=== PATIENT | male | born 1985 | race Caucasian/White ===

== ENCOUNTER 2019-07-11 20:08 | Emergency (ER) | payer SELFPAY ==
[2019-07-11 20:09] VITALS: BP 124/69; PULSE 90; RESP 16; TEMP 36.3; O2SAT 99; BMI 22.1
--- NOTE | 2019-07-11 20:39 | ED.RN ---
PT WITH SHORTENED AND BLACKENED NAIL ON LEFT 2ND TOE. PT DENIES INJURY. HE REPORTS, I HAVE STRUGGLED WITH ATHLETES FOOT FOR A LONG TIME, BUT THIS IS DIFFERENT AND IT HURTS. I JUST WANTED IT TO GET CHECKED. PT AWAITING PHYSICIAN. WILL CONTINUE TO MONITOR.
--- NOTE | 2019-07-11 21:24 | ED.VISSUMM ---
- ER Visit Summary Date of Service: 07/11/19 Chief Complaint: [Pain to the left second toe] History of Present Illness: The patient is a 33 M [resents to the emergency department with complaint of pain to his left second toe that started 2 days ago. Patient denies any injury. He denies any fevers. Patient has no medical history.] Physical Examination: [Left foot-second toe reveals tenderness to palpation just proximal to the nail with some faint erythema noted. There is no abscess noted. Patient has fungal infections of all nails. No bony deformity. There is no ecchymosis or bruising. There is no soft tissue swelling.] Test Results: None indicated [] Emergency Department Course and Treatment: [Patient was started on Keflex and given first dose in the emergency department. I suspect he may be developing an early paronychia.] Treatment Plan: [Will be starting Keflex and will be referred to podiatry for follow-up. 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 It may contain incorrect words, spelling, and punctuation that were not noted in review of the chart prior to signing ED Disposition - Plan for ED Patient: Referrals: Care Physician,No Primary [Primary Care Provider] -
--- NOTE | 2019-07-11 21:26 | DCINST.ED_ITS ---
ED Disposition - Plan for ED Patient: Instructions: Paronychia Prescriptions: Cephalexin [Keflex] 500 mg PO Q6 #40 cap Prescription Printed Hydrocodone Bitart/Apap 5-325 [[place] 5MG-325MG] 1 tab PO Q4H PRN PRN 2 Days #10 tab PRN Reason: Pain Score 1-07/26 Prescription Printed Referrals: Care Physician,No Primary [Primary Care Provider] - Kaleb Copeland DPM [STAFF PHYSICIAN] - 3-5 Days
[2019-07-11 21:38] VITALS: RESP 16
== END 2019-07-11 21:40 | disposition home or self-care (01) ==
LOC: ED 21:39
PROVIDERS: Emergency Provider Emergency Medicine
DX: L03.032 Cellulitis of left toe (principal); B35.1 Tinea unguium; Z72.0 Tobacco use
CPT/HCPCS: 99282

== ENCOUNTER 2019-10-04 12:16 | Emergency (ER) | payer OTHER, SELFPAY ==
[2019-10-04 12:18] VITALS: BP 97/71; PULSE 88; RESP 16; TEMP 36.8; O2SAT 100; BMI 22.8
--- NOTE | 2019-10-04 12:43 | RAD_ITS ---
STUDY: X-RAY - RIGHT SHOULDER REASON FOR EXAM: Male, 33 years old. 6 day history of right shoulder pain. No known trauma. TECHNIQUE: 4 view(s) of the shoulder. COMPARISON: None. FINDINGS: Normal glenohumeral articulation. Normal acromioclavicular joint. Normal acromion. Normal humeral head and visualized proximal humerus. The soft tissue structures are unremarkable. Normal visualized pulmonary apex. RAD/Shoulder min 2 Views IMPRESSION: Normal x-ray examination of the shoulder. Electronically Signed: Reinaldo Evans, at 13:13 EST , Service support ,
[2019-10-04] MEDS: Naproxen 500 MG Tablet PO (13:21)
--- NOTE | 2019-10-04 13:26 | ED.DCSUM_ITS ---
- ER Visit Summary Date of Service: 10/04/19 Chief Complaint: Right shoulder pain History of Present Illness: The patient is a 33 M who presents with right shoulder pain that is been getting worse over the past 5 days. Patient describes the pain as sharp and throbbing. Patient states pain is worse with ce rtain movements. Patient states the pain is better in certain positions. Patient states he is seen a chiropractor for this who did x-rays of his neck which were negative. Patient states the chiropractor also did some manipulation therapy with minimal relief. Patient states he does a lot of lifting at work. Physical Examination: Vital signs are stable. Patient is afebrile. Patient is in no acute distress. Musculoskeletal exam reveals tenderness over the posterior aspect of the right shoulder. There is tenderness over the scapula and parascapular muscles. There is no bony crepitance or step-off. There is good range of motion. There is no tenderness over the AC joint or glenohumeral joint. Radial pulses are equal bilaterally. Strength is 5/5 in the upper ext remities bilaterally. There are no sensory deficits noted. Test Results: X-rays of the right shoulder were obtained. There is no acute fracture or dislocation noted. These are interpreted by the radiologist myself. Emergency Department Course and Treatment: Patient was given a dose of Naprosyn here. Patient was instructed to use ice to the area. Patient was instructed to take ibuprofen or Tylenol as needed for pain. Patient was instructed to follow- up with his primary care physician in 5 to 7 days. Patient understood and was agreeable with plan. All questions were answered. Disposition: Discharge home Impression: Right shoulder muscle strain This note was generated with [employer] dictation software. It may contain incorrect words, spelling, and punctuation that were not noted in review of the chart prior to signing ED Disposition - Plan for ED Patient: Disposition: Home or Assisted Living Diagnosis: Muscle strain of right shoulder region Instructions: MUSCLE STRAIN, Extremity Referrals: Care Physician,No Primary [Primary Care Provider] - Kenton Chapman MD [STAFF PHYSICIAN] - 5-7 Days
== END 2019-10-04 13:37 | disposition home or self-care (01) ==
PROVIDERS: Emergency Provider Emergency Medicine
DX: S46.911A Strain of unspecified muscle, fascia and tendon at shoulder and upper arm level, right arm, initial encounter (principal); X58.XXXA Exposure to other specified factors, initial encounter; Y93.9 Activity, unspecified; Y92.9 Unspecified place or not applicable; F17.200 Nicotine dependence, unspecified, uncomplicated
CPT/HCPCS: 73030; 99283

== ENCOUNTER 2021-04-09 10:31 | Emergency (ER) | payer MEDICAID, SELFPAY ==
[2021-04-09 10:31] VITALS: BP 143/96; PULSE 101; RESP 16; TEMP 36.5; O2SAT 97; BMI 24.4
--- NOTE | 2021-04-09 10:40 | EX.ED.DYSGE1 ---
HPI History of Present Illness Chief Complaint: GI Bleed Informant: patient Onset/Context/Timing Onset: Yesterday Context: Gradual Onset Timing: Intermittent Current Severity: Gone Maximum Severity: Moderate Narrative Narrative: Patient presents to the emergency department with abdominal pain and one episode of red blood per rectum. Patient states that he has battled some upper abdominal pain for the past 10 years. He states it will come and go. Is worse in the morning. States yesterday, he was leaving work. He states he got a sudden pain in his midepigastric area. He states he then began having some abdominal cramping. He states that he had a loose bowel movement. It was then followed by some diarrhea mixed with pink-tinged blood. He states that it only happened once. He does not happen again. He is not on anticoagulants. He denies fever. He does not drink alcohol. He has not been taking any anti-inflammatories. PFSH PFS Home Medications docusate sodium [Colace] 50 mg PO DAILY 04/09/21 [History Last Taken Unknown] multivit with [id number] [Men's Daily Multivit-Mineral] 1 tab PO DAILY 04/09/21 [History Last Taken Unknown] omeprazole 20 mg PO DAILY #30 capsule 04/09/21 [Rx Last Taken Unknown] sucralfate [Carafate] 1 g PO BID #60 tab 04/09/21 [Rx Last Taken Unknown] Allergy/AdvReac Type Severity Reaction Status Date / Time No Known Allergies Allergy Verified 04/09/21 10:35 Social History Smoking Status: Current every day smoker tobacco type: cigarettes ROS ROS ED Constitutional Constitutional ED: Denies chills or fever(s) Eyes Eyes: Denies blurry vision or change in vision ENT ENT ED: Denies ear pain or sore throat Cardiovascular Cardiovascular: Denies chest pain or palpitations Respiratory/Chest Respiratory/Chest: Denies cough, dyspnea or dyspnea on exertion Gastrointestinal Gastrointestinal: Reports abdominal pain, diarrhea and nausea Genitourinary Genitourinary ED: Denies dysuria or urinary frequency Musculoskeletal Musculoskeletal: Denies arthralgias or myalgias Integumentary Denies rash Neurologic Neurologic: Denies headache(s) or paresthesias Psychiatric Psychiatric: Denies anxiety or depression Endocrine Endocrinology: Denies polydipsia or polyuria Allergic/Immunologic Allergic/Immunologic ED: Denies urticaria EXAM Physical Exam Const Vital Signs: 04/09/21 10:31 Temperature 97.7 F L Temperature Source Temporal Pulse Rate 101 H Respiratory Rate 16 Blood Pressure 143/96 H Blood Pressure Mean 111 Pulse Ox 97 Oxygen Delivery Method Room Air Positive well nourished and well developed General Appearance ED: well developed HEENT Reports normocephalic, head/scalp atraumatic and moist mucous membranes Eyes PERRL and EOMs intact bilaterally Neck no lymphadenopathy and supple General: Negative for tenderness Chest Wall inspection of chest normal Resp normal respiratory effort and clear to auscultation bilaterally Cardio regular rate, regular rhythm and no murmurs GI normal to inspection, nondistended, normoactive bowel sounds Palpation: Negative for tender, guarding or rebound tenderness present Back/Spine no CVA tenderness Cervical Spine: Negative for cervical spine tenderness Thoracic Spine / Upper Back: Negative for thoracic spinal tenderness Extremity normal to inspection General Extremety ED: Negative for tenderness Neuro oriented x3 and CN's II-XII intact bilaterally Neuro Narrative: No focal deficits appreciated. Sensorium / Orientation: alert Psych mental status grossly normal Skin no rashes or lesions noted, no wounds and skin turgor normal MDM MDM Lab Data Attestation: I reviewed the patient's lab results. Lab results narrative: Patient presents with midepigastric abdominal pain and concern for 1 episode of bright red blood per rectum. He is not had any more episodes. His abdomen is soft and nontender. His symptoms do seem consistent with ulcer. The patient is not on anticoagulants. Screening labs were obtained. His hemoglobin is normal. Liver functions were normal. With his pain I did want to rule out perforation or other dangerous process. He underwent CT which was unremarkable. At this point, I Jennifer start the patient on Protonix and Carafate. I am going to give him outpatient surgical follow-up as he may benefit from endoscopy. He is comfortable with this plan of care and will be discharged home. Impression 1. Gastritis Labs: Laboratory Results - last 24 hr 04/09/21 04/09/21 11:04 11:04 WBC 9.2 RBC 4.86 Hgb 14.3 Hct 42.9 MCV 88.3 MCH 29.4 MCHC 33.3 RDW Std Deviation 42.3 RDW Coeff of [place] 13.0 Plt Count 285 MPV 10.3 Immature Gran % (Auto) 0.500 Neut % (Auto) 70.9 H Lymph % (Auto) 19.9 [place] % (Auto) 6.2 Eos % (Auto) 2.2 Baso % (Auto) 0.3 Absolute Neuts (auto) 6.5 Absolute Lymphs (auto) 1.82 Nucleated RBC % 0 Sodium 141 Potassium 4.0 Chloride 108 H Carbon Dioxide 29.0 Anion Gap 4 L BUN 12 Creatinine 1.02 Estim Creat Clear Calc 107.66 Est GFR (MDRD) Af Amer 107 Est GFR (MDRD) Non-Af 88 BUN/Creatinine Ratio 11.8 Glucose 93 Calcium 9.1 Total Bilirubin 0.50 AST 15 ALT 34 Alkaline Phosphatase 63 Total Protein 7.5 Albumin 4.2 Globulin 3.3 Albumin/Globulin Ratio 1.3 Radiography Diagnostic Testing: Radiology Impression Abdomen/Pelvis CT 04/09/21 11:42 IMPRESSION: Small para-aortic lymph nodes as mentioned. Electronically Signed: Tracy Jose, at 12:22 EDT Tel , Service support , Discharge Plan Triage Chief Complaint: GI Bleed ED Provider: Allen Hawkins Dx/Rx/DC Orders Instructions: ED PEPTIC ULCER vs GASTRITIS Prescriptions: New omeprazole [omeprazole] 20 MG capsule 20 mg PO DAILY Qty: 30 RF: 0 sucralfate [Carafate] 1 gram tablet 1 g PO BID Qty: 60 RF: 0 No Action Colace 50 mg Capsule 50 mg PO DAILY RF: 0 Men's Daily Multivit-Mineral 0.4-600 mg-mcg Tablet 1 tab PO DAILY RF: 0 Primary Care Provider: Care Physician,No Primary Referrals: Aimee Ruano MD [STAFF PHYSICIAN] - 1 Week Care Physician,No Primary [Primary Care Provider] -
[2021-04-09] MEDS: 0.9% Normal Saline 1,000 ML 1000 ML IV (11:06)
[2021-04-09] MEDS: Ondansetron 4 MG/2 ML Vial IV (11:06)
[2021-04-09 11:20] LABS: Absolute Lymphocyte Count 1.82 X10^3/uL (0.83-4.51); Absolute Neutrophil Count 6.5 X10^3/uL (2.0-7.7); Basophil# 0.03 X10^3/uL; Basophil% 0.3 % (0-1); Eosinophils% 2.2 % (0-5); Hematocrit 42.9 % (40-54); Hemoglobin 14.3 g/dL (13.0-16.5); Lymphocyte # 1.82 X10^3/ul (0.83-4.51); Lymphocyte % 19.9 % (19-41); Mean Corp Hgb Conc 33.3 g/dL (32-36); Mean Corpuscular Hgb 29.4 pg (27.0-32.0); Mean Corpuscular Volume 88.3 fL (80-94); Mean Platelet Vol. 10.3 fl (6.2-12.0); Monocyte# 0.57 X10^3/uL; Monocyte% 6.2 % (0-10); NRBC Flagged by Analyzer 0 % (0-5); Neutrophil # 6.49 X10^3/uL (2.7-7.7); Neutrophil % 70.9 % (47-70); Platelet Count 285 K/mm3 (150-450); RBC Distribution Width SD 42.3 fl (35.1-43.9); Red Blood Count 4.86 M/mm3 (4.6-6.2); White Blood Count 9.2 K/mm3 (4.4-11.0)
[2021-04-09 11:34] LABS: ALB/GLOB Ratio 1.3 RATIO (0.9-2.4); AST(SGOT) 15 U/L (15-37); Alanine Aminotransfer ALT/SGPT 34 U/L (16-61); Albumin, Serum 4.2 g/dL (3.2-5.0); Alkaline Phosphatase 63 U/L (45-117); Anion Gap 4 (5-15); BUN 12 mg/dL (7-18); BUN/Creat Ratio 11.8 RATIO (10-20); Calcium,Total 9.1 mg/dL (8.5-10.1); Chloride 108 mmol/L (98-107); Creatinine, Serum 1.02 mg/dL (0.70-1.30); EST Glomerular Filtration Rate 88 mL/min (>60); Est Glom Filt Rate - Afr Amer 107 mL/min (>60); Estimated Creatinine Clearance 107.66 ml/min; Globulin 3.3 g/dL (2.2-4.2); Glucose 93 mg/dL (74-106); Protein, Total 7.5 g/dL (6.4-8.2); Sodium Level 141 mmol/L (136-145)
--- NOTE | 2021-04-09 11:42 | CT_ITS ---
STUDY: CT ABDOMEN AND PELVIS WITH CONTRAST REASON FOR EXAM: Male, 35 years old. epigastric pain RADIATION DOSAGE (If Supplied By Facility): CTDIvol = ( 11.61 ) mGy, DLP = ( 529.66 ) mGycm TECHNIQUE: Transaxial images were obtained from the dome of the diaphragm to the symphysis pubis without oral contrast. IV 100mL Isovue-370 was administered. Sagittal and coronal images were reconstructed. Individualized dose optimization techniques were used for this CT. COMPARISON: None. FINDINGS: The visualized lung bases are unremarkable. The visualized portions of the heart are within normal limits. The liver is normal in size and attenuation no focal lesion or abnormal enhancement.. Normal gallbladder and extrahepatic biliary system. Normal spleen. Normal pancreas. There is thickening right crura of the diaphragm. There are few lymph nodes in the para-aortic area the largest is to the left of the bifurcation of the aorta measures 2.2 by by 1 cm. Both kidneys are normal in size, shape and position no hydronephrosis seen. Normal bilateral adrenal glands. Normal right kidney. Normal left kidney. Normal visualized stomach. Normal small intestine. Normal colon. The appendix is visualized and appears normal. Normal abdominal aorta. Normal inferior vena cava. Normal retroperitoneum. Normal urinary bladder. Normal abdominal wall. Normal osseous structures. CT/Abdomen/Pelvis W IV Cont ONLY IMPRESSION: Small para-aortic lymph nodes as mentioned. Electronically Signed: Tracy Jose, at 12:22 EDT Tel , Service support ,
[2021-04-09 12:53] VITALS: BP 119/80; PULSE 76; RESP 18; TEMP 36.3; O2SAT 99
== END 2021-04-09 12:54 | disposition home or self-care (01) ==
LOC: ED 11:28
PROVIDERS: Emergency Provider Emergency Medicine
DX: K29.70 Gastritis, unspecified, without bleeding (principal); F17.210 Nicotine dependence, cigarettes, uncomplicated
CPT/HCPCS: 74177; 80053; 85025; 96365; 96375; 99283; J7030; Q9967; A4216; J2405

== ENCOUNTER 2021-07-19 14:20 | Emergency (ER) | payer MEDICAID, SELFPAY ==
[2021-07-19 14:21] VITALS: BP 129/78; PULSE 100; RESP 16; TEMP 36.1; BMI 25.4
--- NOTE | 2021-07-19 15:40 | EX.ED.GENINJ ---
HPI History of Present Illness Chief Complaint: Other, Pain/Inj Detail of Chief Complaint: [place] in right middle finger Informant: patient Narrative Narrative: Patient presents to the emergency department a fishhook in his right middle finger. Patient states he was cleaning out his boat when he accidentally got hooked. Patient is right-hand dominant. He is up-to-date on tetanus. [facility] Medical History (Updated 07/19/21 @ 15:[address] Kelly Beltre, DO) Asthma Back pain Chronic cough Former smoker Gastric reflux History of edema Nausea Ulcer Wears dentures Home Medications NK 07/19/21 [History Last Taken Unknown] Allergy/AdvReac Type Severity Reaction Status Date / Time No Known Allergies Allergy Verified 07/19/21 14:21 Family History (Updated 04/24/21 @ 13:31 by Deana Cruz) Father No problems noted. Surgical History (Updated 04/24/21 @ 13:31 by Deana Cruz) History of mandibular surgery (~1994) Social History (Updated 04/24/21 @ 13:32 by Deana Cruz) Smoking Status: Current every day smoker tobacco type: cigarettes substance use type: does not use caffeine: Yes ROS ROS ED Constitutional Constitutional ED: Reports systems reviewed and no addt'l complaints, except as documented; Denies body ache(s), change in weight or chills Eyes Eyes: Denies acute decrease in peripheral vision, change in vision, double vision or loss of vision ENT ENT ED: Reports none; Denies ear pain, lip swelling, loss taste/smell, neck pain, otalgia or sore throat Cardiovascular Cardiovascular: Reports none; Denies abdominal pain, chest pain with activity, leg edema, lightheadedness, palpitations, rapid heart rate or syncope Respiratory/Chest Respiratory/Chest: Reports none; Denies change in mental status, dry cough, dyspnea, hemoptysis, shortness of breath at rest or shortness of breath with exertion Gastrointestinal Gastrointestinal: Reports none; Denies abdominal pain, change in stool character, diarrhea, hematemesis, hematochezia, melena, rectal bleeding or vomiting Genitourinary Genitourinary ED: Reports none; Denies abdominal discomfort, anuria, dysuria, genital pain or polyuria Musculoskeletal Musculoskeletal: Reports none and other Details: Foreign body right long finger ; Denies arthralgias, back pain, difficulty walking, extremity pain, muscle weakness or myalgias Integumentary Reports none; Denies abscess or rash Neurologic Neurologic: Reports none; Denies abnormal gait, confusion, focal weakness, frequent falls, headache(s), loss of vision, numbness, paresthesias, radicular pain, vertigo or weakness Psychiatric Psychiatric: Reports systems reviewed and no addt'l complaints, except as documented and none; Denies behavioral changes, confusion, difficulty concentrating, hallucinations, suicidal ideation, tactile hallucinations or visual hallucinations Endocrine Endocrinology: Denies none, cold intolerance, excessive sweating, fatigue or heat intolerance Hematologic/Lymphatic Hematologic/Lymphatic: Reports none; Denies anemia, easy bleeding or easy bruising Allergic/Immunologic Allergic/Immunologic ED: Denies as per HPI, none, lip swelling, mouth swelling, throat swelling, tongue swelling or hives EXAM Physical Exam Const Vital Signs: 07/19/21 14:21 Temperature 97.0 F L Temperature Source Temporal Pulse Rate 100 Respiratory Rate 16 Blood Pressure 129/78 H Blood Pressure Mean 95 Positive well nourished and well developed General Appearance ED: well developed and NAD HEENT Reports TM's clear and moist mucous membranes normocephalic and atraumatic; Negative for trauma or tenderness Tympanic Membrane ED: Yes TM's clear Eyes PERRL and EOMs intact bilaterally General Eye ED: Negative for pale conjunctiva or scleral icterus Neck no lymphadenopathy, supple and no JVD General: Negative for tenderness Chest Wall inspection of chest normal and palpation of chest normal Chest: Negative for tenderness Resp normal respiratory effort and clear to auscultation bilaterally Effort and Inspection: Negative for respiratory distress or pain with movement Auscultation: Negative for rhonchi, wheezes or diminished lung sounds Cardio regular rate, regular rhythm, S1 normal heart sound, S2 normal heart sound and no murmurs Peripheral Pulses: pulses 2+ throughout GI normal to inspection, nondistended, normoactive bowel sounds, soft to palpation, non-tender, non-distended and no masses Back/Spine no CVA tenderness and no thoracic nor lumbar tenderness Extremity Extremity Narrative: Patient has a hook in the right middle finger and the volar portion of the distal phalanx pulp. General Extremety ED: Negative for edema General Extremity: Negative for edema Neuro oriented x3, CN's II-XII intact bilaterally, no sensory deficits noted and gait normal Sensorium / Orientation: awake, alert, oriented to person, oriented to place and oriented to time Motor Exam: strength 5/5 throughout and strength abnormal Psych mental status grossly normal Skin no rashes or lesions noted and no wounds MDM MDM MDM Narrative Medical decision making narrative: I offered to remove the needle by a locally anesthetizing with 1% lidocaine. Using 1% lidocaine 1 cc was used to anesthetize the finger locally. Using 11 blade a small incision was made along the area of the bar. The hook was then easily removed. Lab Data Attestation: I reviewed the patient's lab results. Discharge Plan Triage Chief Complaint: Other, Pain/Inj ED Provider: Kelly Beltre Dx/Rx/DC Orders Clinical Impression: [place] injury to finger Instructions: ED Foreign Body, Soft Tissue (Removed) Prescriptions: No Action NK RF: 0 Primary Care Provider: Care Physician,No Primary Referrals: Jacky Sinha MD [STAFF PHYSICIAN] - As Needed Care Physician,No Primary [Primary Care Provider] - Disposition Disposition: Home, Self Care
[2021-07-19] MEDS: Lidocaine 1% (20 ml mdv) 20 ML Vial 10 ML INFILT (15:45)
[2021-07-19 15:56] VITALS: PULSE 92; RESP 17; O2SAT 96
== END 2021-07-19 16:00 | disposition home or self-care (01) ==
LOC: ED 15:57
PROVIDERS: Emergency Provider Emergency Medicine
DX: S61.242A Puncture wound with foreign body of right middle finger without damage to nail, initial encounter (principal); W45.8XXA Other foreign body or object entering through skin, initial encounter; Y93.9 Activity, unspecified; Y92.9 Unspecified place or not applicable; J45.909 Unspecified asthma, uncomplicated; F17.210 Nicotine dependence, cigarettes, uncomplicated
CPT/HCPCS: 10120; 99283

== ENCOUNTER → 2024-01-09 | Outpatient (CLI) | payer SELFPAY ==
--- NOTE | 2024-01-09 17:42 | CT_ITS ---
STUDY: CT MAXILLOFACIAL SINUSES REASON FOR EXAM: Male, 38 years old. SINUSITIS. Odd smell out of the right nostril. RADIATION DOSAGE (If Supplied By Facility): CTDIvol = ( 33.06 ) mGy, DLP = ( 792.53 ) mGycm TECHNIQUE: The patient was scanned in a multi detector CT scanner. High resolution axial imaging was performed without the administration of intravenous contrast material. Sagittal and coronal images were reconstructed. Individualized dose optimization techniques were used for this CT. COMPARISON: None. FINDINGS: FRONTAL SINUSES: Normal aeration, without mucosal inflammatory disease. ETHMOIDAL SINUSES: Minimal mucosal thickening of the ethmoid sinuses slightly more prominent on the left side. MAXILLARY SINUSES: Normal aeration, without mucosal inflammatory disease. SPHENOIDAL SINUSES: Normal aeration, without mucosal inflammatory disease. There is patency of the bilateral maxillary infundibuli with normal uncinate processes, ethmoid bullae, and hiatus semilunaris. Normal bilateral middle turbinates. Normal bilateral inferior turbinates. Normal midline nasal septum. There is patency of the bilateral nasal airways. The visualized osseous structures are normal. The visualized bilateral orbital contents are normal. CT/Sinus/Facial Bone IMPRESSION: Minimal mucosal thickening of the ethmoid sinuses slightly more prominent on the left side. Electronically Signed: Reinaldo Evans MD at 9:33 EDT ,
== END | disposition home or self-care (01) ==
PROVIDERS: PCP Nurse Practitioner Family; Referring Provider Otolaryngology Otolaryngology/Facial Plastic Surgery; Visit Provider Otolaryngology Otolaryngology/Facial Plastic Surgery
DX: J32.8 Other chronic sinusitis (principal); R43.1 Parosmia
CPT/HCPCS: 70486

== ENCOUNTER 2024-06-23 22:21 | Emergency (ER) | payer OTHER, SELFPAY ==
[2024-06-23 22:21] VITALS: BP 131/91; PULSE 60; RESP 14; TEMP 36.6; O2SAT 100; BMI 26.2
[2024-06-23 22:46] VITALS: BP 121/71; PULSE 65; RESP 16; TEMP 36.7; O2SAT 100
--- NOTE | 2024-06-23 22:47 | ED.VIS.GI ---
HPI HPI - GI History of Present Illness Chief Complaint: Abd Pain Informant: patient and family Narrative Narrative: 38-year-old healthy male has been having lower abdominal pain off and on this past week. It started 6 days ago, he had vomiting and woke up the next day feeling fine. Pain basically has been gone until today. It is been there all day with occasional exacerbations of the discomfort that makes him feel sick to his stomach and has had occasional vomiting but this was worse 6 days ago. No fevers or chills. He states the major change is his bowel habits. He usually goes every day with regards to having a bowel movement, however he has not gone at all this past week except for today he had very small amounts of hard stool come out. He does not have immediate need to go right now. He has had no issues urinating. Pain does not radiate into his back or anywhere else. He has no history of abdominal surgeries but states he had blood in his stool at 1 point and was told he may have an ulcer, he had no scope done in the past. [facility] Medical History Depression Marijuana abuse Wears dentures Back pain Gastric reflux Former smoker Asthma Chronic cough History of edema Nausea Ulcer Home Medications ?Medication ?Instructions ?Recorded ?Last Taken ?Type dicyclomine 10 mg capsule 20 mg (2 x 10 mg) PO Q6H PRN PRN 06/23/24 Unknown Rx abdominal discomfort #20 CAPSULES doxycycline monohydrate 50 mg 50 mg PO DAILY 06/23/24 Unknown History capsule escitalopram oxalate 10 mg tablet 10 mg PO DAILY 06/23/24 Unknown History magnesium citrate 150 ml PO QHS PRN constipation 06/23/24 Unknown Rx #296 mL ondansetron 8 mg disintegrating 8 mg PO Q8H PRN nausea and 06/23/24 Unknown Rx tablet vomiting #10 tabs Allergy/AdvReac Type Severity Reaction Status Date / Time No Known Allergies Allergy Verified 06/23/24 22:22 Family History (Updated 04/24/21 @ 13:31 by Deana Cruz) Father No problems noted. Surgical History History of mandibular surgery (~1994) Social History Smoking Status: Current every day smoker tobacco type: cigarettes and e-cigarettes substance use type: does not use caffeine: Yes ROS ROS ED Constitutional Constitutional ED: Denies chills or fever(s) Eyes Eyes: Denies change in vision or diplopia ENT ENT ED: Denies rhinorrhea or sore throat Cardiovascular Cardiovascular: Denies chest pain or palpitations Respiratory/Chest Respiratory/Chest: Denies cough or dyspnea Gastrointestinal Gastrointestinal: Reports abdominal pain, constipation, nausea, vomiting and other Details: Chronic epigastric discomfort every morning for 4 years ; Denies diarrhea, hematochezia or melena Genitourinary Genitourinary ED: Denies dysuria or hematuria Musculoskeletal Musculoskeletal: Denies back pain or neck pain Integumentary Denies abscess or rash Neurologic Neurologic: Denies headache(s), paresthesias or weakness Psychiatric Psychiatric: Denies anxiety or suicidal thoughts EXAM Physical Exam Const Vital Signs: 06/23/24 22:21 Temperature 98 F Temperature Source Temporal Pulse Rate 60 Respiratory Rate 14 Blood Pressure 131/91 H Blood Pressure Mean 104 Pulse Ox 100 Oxygen Delivery Method Room Air Positive well nourished and well developed General Appearance ED: well developed and NAD HEENT Reports moist mucous membranes normocephalic and atraumatic Eyes PERRL and EOMs intact bilaterally Neck full ROM and supple Resp normal respiratory effort and clear to auscultation bilaterally Cardio regular rate, regular rhythm and no murmurs GI non-tender and non-distended GI Narrative: Benign abdomen at this time with patient feeling improved compared with earlier. No reproducible tenderness. Auscultation: normoactive bowel sounds Palpation: soft Back/Spine no CVA tenderness General Back: other FROM Extremity normal to inspection General Extremety ED: Negative for edema, pulses abnormal or tenderness General Extremity: Negative for edema or pulses abnormal Neuro oriented x3, CN's II-XII intact bilaterally and no sensory deficits noted Sensorium / Orientation: awake and alert Motor Exam: strength 5/5 throughout Skin no rashes or lesions noted and no wounds MDM MDM MDM Narrative Medical decision making narrative: As I discussed with this patient my suspicion is that this is bowel spasm due to constipation. I offered abdominal films, labs, plus or minus a CT scan which were all considered, however the patient states after my evaluation that he is paying riggs and does not have health insurance. 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 He also states his diet is very poor, all of this correlates with constipation. I am not concerned about appendicitis since he does not have any pain or tenderness right now and the symptoms have been intermittent. He states he is interested in avoiding testing because he is paying riggs which is understandable. I think reasonable to treat his symptoms and his constipation, he can always return if he gets worse he is choosing that course and is comfortable with that plan. He is given a prescription for magnesium citrate with instructions for use, dicyclomine, Zofran. Discharge Plan Triage Chief Complaint: Abd Pain ED Provider: Murtaza Avelar Dx/Rx/DC Orders Clinical Impression: Lower abdominal pain, Constipation Instructions: ED Constipation (Adult) Prescriptions: New magnesium citrate Solution 150 ml PO QHS PRN (Reason: constipation) Qty: 296 0RF Rx Instructions: repeat in 24 hrs if no effect dicyclomine 10 mg capsule 20 mg PO Q6H PRN PRN (Reason: abdominal discomfort) Qty: 20 0RF ondansetron 8 mg tablet,disintegrating 8 mg PO Q8H PRN (Reason: nausea and vomiting) Qty: 10 0RF No Action doxycycline monohydrate 50 mg capsule 50 mg PO DAILY escitalopram oxalate 10 mg tablet 10 mg PO DAILY Primary Care Provider: Erika Hernandez Referrals: Erika Hernandez, [employer] [Primary Care Provider] - 3-5 Days if not improving Activity Restrictions/Additional Instructions: If you do not have a bowel movement within 24 hours of drinking half of the bottle of magnesium citrate with plenty of water, repeat with the other half of the bottle. You may also try a fleets enema at home. Print Language: Sammarinese Disposition Disposition: Home, Self Care
[2024-06-23] MEDS: Ketorolac 60 MG/2 ML Vial IM (23:30)
[2024-06-23] MEDS: Dicyclomine 20 MG/2 ML Vial IM (23:30)
== END 2024-06-23 23:48 | disposition home or self-care (01) ==
LOC: ED 22:55
PROVIDERS: Emergency Provider Emergency Medicine; PCP Nurse Practitioner Family; Visit Provider Emergency Medicine
DX: R10.30 Lower abdominal pain, unspecified (principal); K59.00 Constipation, unspecified; F32.A Depression, unspecified; Z79.899 Other long term (current) drug therapy; F17.210 Nicotine dependence, cigarettes, uncomplicated; F17.290 Nicotine dependence, other tobacco product, uncomplicated
CPT/HCPCS: 96372; 99282

== ENCOUNTER 2025-06-02 18:10 | Emergency (ER) | payer OTHER, SELFPAY ==
[2025-06-02 18:11] VITALS: BP 137/74; PULSE 99; RESP 14; TEMP 35.6; O2SAT 98; BMI 28.0
--- OUTSIDE RECORDS SUMMARY | 2025-06-02 19:43 | XMS RPT_ITS | CCD ---
Author Organization [facility] Providers Care Java Designer Name Role Phone DEB SLADE DO Primary Care Unavailable DEB SLADE DO Admitting Unavailable DEB SLADE DO Attending Unavailable DEB SLADE DO Consulting Unavailable PROVIDER, UNKNOWN Consulting Unavailable PROVIDER, UNKNOWN Consulting Unavailable DEB SLADE DO Primary Care Unavailable DEB SLADE DO Admitting Unavailable DEB SLADE DO Attending Unavailable DEB SLADE DO Consulting Unavailable PROVIDER, UNKNOWN Consulting Unavailable PROVIDER, UNKNOWN Consulting Unavailable Peña Morris Referring Unavailable Peña Morris Attending Unavailable Erika Hernandez Primary Care Unavailabl e Muratza Avelar Attending Unavailable Erika Hernandez Primary Care Unavailabl e Medications Current Medications Medication Drug Class(es) Dates Sig (Normalized) Sig (Original) [place] (Nk) (1 source) Start: 07-19-2021 [place] (Nk) A ctive July 19, 2021 12:00am Completed/Discontinued Medications Medication Drug Class(es) Dates Sig (Normalized) Sig (Original) acetaminophen 325 mg / HYDROcodone bitartrate 5 mg oral tablet (1 source) Opioid Agonist Start: 07-11-2019 End: 07-16-2019 take 1 tablet by mouth every four hours as needed Hydrocodone-Acetam inophen Discontinued 1 TABLET PO EVERY 4 HOURS NEEDED 07 18July 11, 2019 July 16, 2019 12:09am docusate sodium 50 mg oral capsule (1 source) Start: 04-09-2021 End: 04-24-2021 take 1 capsule by mouth once daily Docusate Sodium (Colace) 50 mg Capsule Discontinued 50 MG PO DAILY April 09, 2021 12:00am April 24, 2021 1:34pm omeprazole 20 mg delayed release oral capsule (1 source) Proton Pump Inhibitor Start: 04-09-2021 End: 04-24-2021 take 20 mg by mouth once daily Omeprazole Discontinued 20 MG PO DAILY April 09, 2021 12:00am April 24, 2021 2:03pm Problems Problem Classification Problem Date Documented Da te Episodic/Chronic Abdominal pain (1 source) Lower abdominal pain, unspecified; Translations: [Lower abdominal pain, unspecified] Onset: 4 Episodic Chronic ulcer of skin (1 source) Ulcer; Translations: [Ulcerative lesion] 04-24-2021 Chronic Esophageal disorders (1 source) Gastroesophageal reflux disease; Translations: [Gastro-esophageal reflux disease without esophagitis] 04-24-2021 Chronic Gastrointestinal hemorrhage (1 source) Gastrointestinal hemorrhage; Translations: [Hemorrhage of anus and rectum] 04-24-2021 Episodic Nausea and vomiting (1 source) Nausea; Translations: [Nausea] 04-24-2021 Episodic Other injuries and conditions due to external causes (1 source) Injury of finger; Translations: [Unspecified injury of unspecified wrist, hand and finger(s), initial encounter] 07-27-2021 Episodic Other screening for suspected conditions (not mental disorders or infectious disease) (3 sources) Encounter for screening for diseases of the blood and blood-forming organs and certain disorders involving the immune mechanism; Translations: [Encounter for screening for other metabolic disorders] Onset: 2 Episodic Other upper respiratory infections (1 source) Other chronic sinusitis; Translations: [Other chronic sinusitis] Onset: 4 Chronic Sprains and strains (1 source) Strain of muscle of upper limb; Translations: [Strain of unspecified muscle, fascia and tendon at shoulder and upper arm level, right arm, initial encounter] 10-05-2019 Episodic Results Test Name Value Interpretation Reference Range Facil ity Emergency Department Summary on 06-23-2024 Emergency Department Summary [facility] Medical Records Department [address] [place] [address] Emergency Department Summary 06/23/24 MR#: [id number] Acct: [id number] Name: DANTE ORTEGA Rep #: [id number] : 1985 38 From: Murtaza Avelar MD PCP: Erika Hernandez, SMOKE ROOM OPERATOR-C Status:DEP ER Location: ED HPI HPI - GI History of Present Illness Chief Complaint: Abd Pain Informant: patient and family Narrative Narrative: 38-year-old healthy male has been having lower abdominal pain off and on this past week. It started 6 days ago, he had vomiting and woke up the next day feeling fine. Pain basically has been gone until today. It is been there all day with occasional exacerbations of the discomfort that makes him feel sick to his stomach and has had occasional vomiting but this was worse 6 days ago. No fevers or chills. He states the major change is his bowel habits. He usually goes every day with regards to having a bowel movement, however he has not gone at all this past week except for today he had very small amounts of hard stool come out. He does not have immediate need to go right now. He has had no issues urinating. Pain does not radiate into his back or anywhere else. He has no history of abdominal surgeries but states he had blood in his stool at 1 point and was told he may have an ulcer, he had no scope done in the past. [facility] Medical History Depression Marijuana abuse Wears dentures Back pain Gastric reflux Former smoker Asthma Chronic cough History of edema Nausea Ulcer Home Medications ???Medication ???Instructions ???Recorded ???Last Taken ???Type dicyclomine 10 mg capsule 20 mg (2 x 10 mg) PO Q6H PRN PRN 06/23/24 Unknown Rx abdominal discomfort #20 CAPSULES doxycycline monohydrate 50 mg 50 mg PO DAILY 06/23/24 Unknown History capsule escitalopram oxalate 10 mg tablet 10 mg PO DAILY 06/23/24 Unknown History magnesium citrate 150 ml PO QHS PRN constipation 06/23/24 Unknown Rx #296 mL ondansetron 8 mg disintegrating 8 mg PO Q8H PRN nausea and 06/23/24 Unknown Rx tablet vomiting #10 tabs Allergy/AdvReac Type Severity Reaction Status Date / Time No Known Allergies Allergy Verified 06/23/24 22:22 Family History (Updated 04/24/21 @ 13:31 by Deana Cruz) Father No problems noted. Surgical History History of mandibular surgery ( 1994) Social History Smoking Status: Current every day smoker tobacco type: cigarettes and e-cigarettes substance use type: does not use caffeine: Yes ROS ROS ED Constitutional Constitutional ED: Denies chills or fever(s) Eyes Eyes: Denies change in vision or diplopia ENT ENT ED: Denies rhinorrhea or sore throat Cardiovascular Cardiovascular: Denies chest pain or palpitations Respiratory/Chest Respiratory/Chest: Denies cough or dyspnea Gastrointestinal Gastrointestinal: Reports abdominal pain, constipation, nausea, vomiting and other Details: Chronic epigastric discomfort every morning for 4 years ; Denies diarrhea, hematochezia or melena Genitourinary Genitourinary ED: Denies dysuria or hematuria Musculoskeletal Musculoskeletal: Denies back pain or neck pain Integumentary Denies abscess or rash Neurologic Neurologic: Denies headache(s), paresthesias or weakness Psychiatric Psychiatric: Denies anxiety or suicidal thoughts EXAM Physical Exam Const Vital Signs: 06/23/24 22:21 Temperature 98 F Temperature Source Temporal Pulse Rate 60 Respiratory Rate 14 Blood Pressure 131/91 H Blood Pressure Mean 104 Pulse Ox 100 Oxygen Delivery Method Room Air Positive well nourished and well developed General Appearance ED: well developed and NAD HEENT Reports moist mucous membranes normocephalic and atraumatic Eyes PERRL and EOMs intact bilaterally Neck full ROM and supple Resp normal respiratory effort and clear to auscultation bilaterally Cardio regular rate, regular rhythm and no murmurs GI non-tender and non-distended GI Narrative: Benign abdomen at this time with patient feeling improved compared with earlier. No reproducible tenderness. Auscultation: normoactive bowel sounds Palpation: soft Back/Spine no CVA tenderness General Back: other FROM Extremity normal to inspection General Extremety ED: Negative for edema, pulses abnormal or tenderness General Extremity: Negative for edema or pulses abnormal Neuro oriented x3, CN's II-XII intact bilaterally and no sensory deficits noted Sensorium / Orientation: awake and alert Motor Exam: strength 5/5 throughout Skin no rashes or lesions noted and no wounds MDM MDM MDM Narrative Medica (more content not included)... Normal [facility] Sinus/Facial Boneon 01-09-20 Sinus/Facial Bone [facility] Imaging Services [address] [place] [address] Sinus/Facial Bone MR#: [id number] Acct: [id number] Name: DANTE ORTEGA Rep #: [id number] : 1985 M 38 From: Reinaldo philip MD PCP: SALVADOR Reid Status: REG CLI Study: Sinus/Facial Bone Date of Exam: 01/09/24 Exam# [id number] Ordering Dr: Peña Morris MD [id number] STUDY: CT MAXILLOFACIAL SINUSES REASON FOR EXAM: Male, 38 years old. SINUSITIS. Odd smell out of the right nostril. RADIATION DOSAGE (If Supplied By Facility): CTDIvol = ( 33.06 ) mGy, DLP = ( 792.53 ) mGycm TECHNIQUE: The patient was scanned in a multi detector CT scanner. High resolution axial imaging was performed without the administration of intravenous contrast material. Sagittal and coronal images were reconstructed. Individualized dose optimization techniques were used for this CT. COMPARISON: None. FINDINGS: FRONTAL SINUSES: Normal aeration, without mucosal inflammatory disease. ETHMOIDAL SINUSES: Minimal mucosal thickening of the ethmoid sinuses slightly more prominent on the left side. MAXILLARY SINUSES: Normal aeration, without mucosal inflammatory disease. SPHENOIDAL SINUSES: Normal aeration, without mucosal inflammatory disease. There is patency of the bilateral maxillary infundibuli with normal uncinate processes, ethmoid bullae, and hiatus semilunaris. Normal bilateral middle turbinates. Normal bilateral inferior turbinates. Normal midline nasal septum. There is patency of the bilateral nasal airways. The visualized osseous structures are normal. The visualized bilateral orbital contents are normal. CT/Sinus/Facial Bone IMPRESSION: Minimal mucosal thickening of the ethmoid sinuses slightly more prominent on the left side. Electronically Signed: Reinaldo Evans MD at 9:33 EDT , CC: SALVADOR Hernandez; Dr. Peña Morris MD Compliance Officer: Signed Normal [facility] CBC + DIFFon 07-28-2022 Baso # 0.00 x10EE3/UL Normal 0.00 - 0.10 [facility] Comment on above: Performed By: #### 2 07983 #### [facility],[address] [place] [address] 35075 Basophils/100 WBC (Bld) 0.5 % Normal 0.0 - 2.0 [facility] Comment on above: Performed By: #### 2 98033 #### [facility],[address] [place], [place] [id number] CBC + DIFF Normal [facility] Comment on above: Result Comment: CBC- COMPLETE BLOOD COUNT Performed By: #### 2 08442 #### [facility],[address] [place], [place] [id number] EO # 0.10 x10EE3/UL Normal 0.00 - 0.50 [facility] Comment on above: Performed By: #### 2 27049 #### [facility],[address] [place] [address] 61595 Eosinophils/100 WBC (Bld) 1.6 % Normal 0.0 - 7.0 [facility] Comment on above: Performed By: #### 2 19618 #### [facility],[address] [place] [address] 91228 Erythrocyte distribution width (RBC) [Ratio] 12.9 % Normal 12.0 - 15.6 [facility] Comment on above: Performed By: #### 2 03539 #### [facility],[address] [place], [place] [address] Hematocrit (Bld) [Volume fraction] 41.4 % Normal 40.0 - 52.0 [facility] Comment on above: Performed By: #### 2 33750 #### [facility],[address] [place] [address] 64446 Hemoglobin (Bld) [Mass/Vol] 14.2 g/dL Normal 13.0 - 17.5 [facility] Comment on above: Performed By: #### 2 09687 #### [facility],[address] [place], [place] [address] Lymph # 1.70 x10EE3/UL Normal 0.80 - 2.80 [facility] Comment on above: Performed By: #### 2 63009 #### [facility],[address] [place], [place] [address] Lymphocytes/100 WBC (Bld) 26.1 % Normal 20.0 - 45.0 [facility] Comment on above: Performed By: #### 2 06270 #### [facility],[address] [place], [place] [address] MANUAL DIFF N/A Normal [facility] Comment on above: Performed By: #### 2 64401 #### [facility],[address] [place] [address] 25335 MCH (RBC) [Entitic mass] 30 pg Normal 27 - 33 [facility] Comment on above: Performed By: #### 2 52303 #### [facility],[address] [place] [address] 88210 MCHC 34 X10 3 Normal 32 - 36 [facility] Comment on above: Performed By: #### 2 36311 #### [facility],[address] [place] [address] 52845 MCV (RBC) [Entitic vol] 87 fL Normal 81 - 98 [facility] Comment on above: Performed By: #### 2 00460 #### [facility],[address] [place] [address] 46259 [place] # 0.40 x10EE3/UL Normal 0.20 - 1.00 [facility] Comment on above: Performed By: #### 2 18191 #### [facility],[address] [place] [address] 69294 MONOS % 6.8 % Normal 0.0 - 10.0 [facility] Comment on above: Performed By: #### 2 40941 #### [facility],[address] [place] [address] 90280 Morphology Fitz (Bld) [Interp] N/A Normal [facility] Comment on above: Result Comment: {CD] Performed By: #### 2 61245 #### [facility],[address] [place] [address] 35551 Neut # 4.10 x10EE3/UL Normal 1.50 - 7.10 [facility] Comment on above: Performed By: #### 2 59389 #### [facility],[address] [place] [address] 25141 Neutrophils/100 WBC (Bld) 65.0 % Normal 46.0 - 76.0 [facility] Comment on above: Performed By: #### 2 51881 #### [facility],[address] [place] [address] 47124 PLATELET 329 x10EE3/UL Normal 150 - 450 [facility] Comment on above: Performed By: #### 2 47619 #### [facility],[address] [place] [address] 62292 Platelet mean volume (Bld) [Entitic vol] 8.6 fL Normal 6.4 - 10.5 [facility] Comment on above: Result Comment: AUTO MATED DIFFERENTIAL Performed By: #### 2 64809 #### [facility],[address] [place] [address] 84763 RBC 4.76 x 10EE6/UL Normal 4.50 - 6.00 [facility] Comment on above: Performed By: #### 2 65469 #### [facility],[address] [place] [address] 66744 WBC 6.4 x 10EE3/UL Normal 4.5 - 10.8 [facility] Comment on above: Performed By: #### 2 22747 #### [facility],[address] [place] [address] 48787 CMP with eGFRon 07-28-2022 AGE 36 years Normal [facility] Comment on above: Performed By: #### 2 44058 #### [facility],[address] [place] [address] 53304 Albumin [Mass/Vol] 4.5 g/dL Normal 3.4 - 5.0 [facility] Comment on above: Performed By: #### 2 07387 #### [facility],[address] [place] [address] 81803 Albumin/Globulin [Mass ratio] 1.3 {ratio} Normal 0.9 - 1.6 [facility] Comment on above: Performed By: #### 2 39219 #### [facility],[address] [place] [address] 79092 ALK PHOS 50 U/L Normal 46 - 116 [facility] Comment on above: Performed By: #### 2 82101 #### [facility],[address] [place] [address] 51319 ALT [Catalytic activity/Vol] 38 U/L Normal 16 - 63 [facility] Comment on above: Performed By: #### 2 91545 #### [facility],[address] [place] [address] 56114 Anion gap [Moles/Vol] 13 mmol/L Normal 10 - 20 [facility] Comment on above: Performed By: #### 2 28364 #### [facility],[address] [place] [address] 76700 AST [Catalytic activity/Vol] 19 U/L Normal 15 - 37 [facility] Comment on above: Performed By: #### 2 87669 #### [facility],[address] [place] [address] 23707 B/C RATIO 13 ratio Normal 0 - 30 [facility] Comment on above: Performed By: #### 2 55857 #### [facility],[address] [place] [address] 65483 Bilirubin [Mass/Vol] 0.4 mg/dL Normal 0.2 - 1.0 [facility] Comment on above: Performed By: #### 2 79989 #### [facility],[address] [place] [address] 47237 Calcium [Mass/Vol] 8.9 mg/dL Normal 8.5 - 10.1 [facility] Comment on above: Performed By: #### 2 96786 #### [facility],[address] [place], [place] [address] Chloride [Moles/Vol] 104 mmol/L Normal 98 - 107 [facility] Comment on above: Performed By: #### 2 65222 #### [facility],[address] [place], [place] [address] CMP with eGFR Normal [facility] Comment on above: Result Comment: COMP REHENSIVE METABOLIC PANEL Performed By: #### 2 51005 #### [facility],[address] [place] [address] 97563 CO2 [Moles/Vol] 31.3 mmol/L Normal 21.0 - 32.0 [facility] Comment on above: Performed By: #### 2 07898 #### [facility],[address] [place] [address] 92325 Creatinine [Mass/Vol] 0.92 mg/dL Normal 0.70 - 1.30 [facility] Comment on above: Performed By: #### 2 31924 #### [facility],[address] [place] [address] 24943 GFR/1.73 sq M.predicted among non-blacks MDRD (S/P/Bld) [Vol rate/Area] mL/min/{1.73_m2} Normal 60 - 999 [facility] Comment on above: Performed By: #### 2 50143 #### [facility],[address] [place] [address] Result Comment: ACCO RDING TO THE NATIONAL KIDNEY DISEASE EDUCATION PROGRAM(NKDE), A NORMAL eGFR IS A VALUE GREATER THAN OR EQUAL TO 60 ML/MIN/1.73 SQ METERS. CHRONIC KIDNEY DISEASE: <60mL/MIN/1.73 SQ METERS KIDNEY FAILURE: <15mL/MIN/1.73 SQ METERS THIS TEST SHOULD ONLY BE USED FOR PATIENTS 18 YEARS OF AGE AND OLDER. Globulin (S) [Mass/Vol] 3.4 g/dL Normal 1.5 - 3.8 [facility] Comment on above: Performed By: #### 2 04190 #### [place] [address] Glucose [Mass/Vol] 88 mg/dL Normal 74 - 106 [facility] Comment on above: Performed By: #### 2 25347 #### [place] [address] Potassium [Moles/Vol] 4.1 mmol/L Normal 3.5 - 5.1 [facility] Comment on above: Performed By: #### 2 25590 #### [place] [address] Protein [Mass/Vol] 7.9 g/dL Normal 6.4 - 8.2 [facility] Comment on above: Performed By: #### 2 35202 #### [facility],[address] [place], [place] [address] Sodium [Moles/Vol] 144 mmol/L Normal 136 - 145 [facility] Comment on above: Performed By: #### 2 53500 #### [place] [id number] Urea nitrogen [Mass/Vol] 12 mg/dL Normal 7 - 18 [facility] Comment on above: Performed By: #### 2 15386 #### [place] [id number] LIPID PROFILEon 07-28-2022 Cholesterol [Mass/Vol] 178 mg/dL Normal 0 - 240 [facility] Comment on above: Performed By: #### 2 07818 #### [facility],[address] [place] [address] 60737 Cholesterol in HDL [Mass/Vol] 46 mg/dL Normal 40 - 60 [facility] Comment on above: Performed By: #### 2 42995 #### [facility],[address] [place] [address] 15443 Cholesterol in LDL [Mass/Vol] 115 mg/dL Normal 0 - 129 [facility] Comment on above: Performed By: #### 2 92462 #### [facility],[address] [place] [address] 28353 Cholesterol.total/C holesterol in HDL [Mass ratio] 3.9 {ratio} Normal 0.0 - 5.0 [facility] Comment on above: Performed By: #### 2 50193 #### [facility],[address] [place] [address] 84272 Lipid 1996 panel Normal [facility] Comment on above: Result Comment: LIPI D PROFILE Performed By: #### 2 34962 #### [facility],[address] [place] [address] 10700 Triglyceride [Mass/Vol] 84 mg/dL Normal 0 - 150 [facility] Comment on above: Performed By: #### 2 65235 #### [facility],[address] [place] [address] 08806 CNOVon 05-11-2019 CNOV Office Visit ([facility] ) LU ORTEGA ([id number]) 1985 M Date Time Provider Department 05/11/19 11:45 AM JULISSA YARBROUGH (FARZAD) [facility] During your visit today, we recorded the following information about you: Temperature Pulse Respiration Blood pressure 97.3 degrees 80/minute 16/minute 110/68 Weight 72 kg Julissa TAYLOR Yarbrough 05/11/2019 1:12 PM Signed Subjective HPI HPI Lu Ortega is a 33 year old male who presents today for CC of stepped on nail through shoe. This started 2 days ago. Has tried nothing for relief. Symptoms are worsened by walking. Needs tetanus update. .Patient presents with: Foot Trauma: stepped on nail; bottom of RIGHT foot under 4th toe No past medical history on file. No past surgical history on file. ALLERGIES Patient has no known allergies. MEDICATIONS No prescriptions on file. No family history on file. Social History Tobacco Use - Smoking status: Current Every Day Smoker - Smokeless tobacco: Never Used Substance Use Topics - Alcohol use: Not on file - Drug use: Not on file Review of Systems Constitutional: Negative for fever. Skin: Negative for itching and rash. Objective Blood pressure 110/68, pulse 80, temperature 36.3 ?C (97.3 ?F), temperature source Left Tympanic, resp. rate 16, weight 72 kg (158 lb 12.8 oz). Physical Exam Constitutional: He is oriented to person, place, and time and well-developed, well-nourished, and in no distress. Non-toxic appearance. He does not have a sickly appearance. No distress. HENT: Head: Normocephalic and atraumatic. Pulmonary/Chest: Effort normal. No accessory muscle usage. No respiratory distress. Musculoskeletal: Feet: Neurological: He is alert and oriented to person, place, and time. Skin: He is not diaphoretic. ASSESSMENT/PLAN: 1. Puncture wound of plantar aspect of right foot, initial encounter - ICD9: 892.0, ICD10: S91.331A (primary diagnosis) -use medication as prescribed -will schedule recheck next week with podiatry -to to ER if worsening signs of infection occur. -concerns for early pseudomonal infection - XR FOOT GENERAL 3V AP/LAT/OBL RT - CIPROFLOXACIN 500 MG TABLET - CONSULT TO PODIATRY 2. Need for tetanus booster - ICD9: V03.7, ICD10: Z23 - TDAP VACCINE AGE 7+ IM Prescription instructions reviewed with patient as applicable. Patient advised if symptoms do not improve or if symptoms worsen sooner, to contact the office for further evaluation by their primary care physician. Potential red flag symptoms discussed with the patient. Reviewed appropriate action plan to take if red flag symptoms occur. Patient agreeable to treatment plan. TAYLOR Calixto APRN.CNP 05/11/2019 12:36 PM Signed ASSESSMENT/PLAN: 1. Puncture wound of plantar aspect of right foot, initial encounter - ICD9: 892.0, ICD10: S91.331A (primary diagnosis) -use medication as prescribed -will schedule recheck next week -to to ER if worsening signs of infection occur. - XR FOOT GENERAL 3V AP/LAT/OBL RT - CIPROFLOXACIN 500 MG TABLET - CONSULT TO PODIATRY 2. Need for tetanus booster - ICD9: V03.7, ICD10: Z23 - TDAP VACCINE AGE 7+ IM Referring Provider: SELF [200] Allergies As of Date: 05/11/2019 (No Known Allergies) Date Reviewed: 05/11/2019 Reviewed by: Cinthia Dwyer Ma - Fully Assessed Reason for Visit: Foot Trauma [766] Cmt: stepped on nail; bottom of RIGHT foot under 4th toe Primary Visit Diagnosis:Puncture wound of plantar aspect of right foot, initial encounter [S91.331A] Other Visit Diagnosis:Need for tetanus booster [Z23] Order(s):XR FOOT GENERAL 3V AP/LAT/OBL RT [[id number]] Order #: [id number] #:[id number] TDAP VACCINE AGE 7+ IM [[id number]] Order #: [id number] ciprofloxacin HCl (CIPRO) 500 mg tabletTake 1 tablet by mouth twice daily for 7 days.Disp: 14 tabletRfl: 0 CONSULT TO PODIATRY [9034] Order #: [id number]: 1 Prescriptions as of 05/11/2019 Sig: CIPROFLOXACIN 500 MG TABLET Take 1 tablet by mouth twice * Problem List As Of Date: 05/11/2019 (None) Other instructions from your clinician: ASSESSMENT/PLAN: 1. Puncture wound of plantar aspect of right foot, initial encounter - ICD9: 892.0, ICD10: S91.331A (primary diagnosis) -use medication as prescribed -will schedule recheck next week -to to ER if worsening signs of infection occur. - XR FOOT GENERAL 3V AP/LAT/OBL RT - CIPROFLOXACIN 500 MG TABLET - CONSULT TO PODIATRY 2. Need for tetanus booster - ICD9: V03.7, ICD10: Z23 - TDAP VACCINE AGE 7+ IM Prescriptions ordered this encounter Disp Refills Start End CIPROFLOXACIN 500 MG TABLET 14 t* 0 05/11/2019 05/18/2019 Route: ORAL Sig: Take 1 tablet by mouth twice daily for 7 days. Letter Text Encounter Status:Closed by JULISSA YARBROUGH CNP on 05/11/19 [facility] PROGRESSon 05-11-2019 PROGRESS HNO ID: [id number] Author: Julissa (Farzad) Service: ? Author Type: Nurse Practitioner Type: Progress Notes Filed: 05/11/2019 1:12 PM Note Text: Subjective HPI HPI Lu Ortega is a 33 year old male who presents today for CC of stepped on nail through shoe. This started 2 days ago. Has tried nothing for relief. Symptoms are worsened by walking. Needs tetanus update. .Patient presents with: Foot Trauma: stepped on nail; bottom of RIGHT foot under 4th toe No past medical history on file. No past surgical history on file. ALLERGIES Patient has no known allergies. MEDICATIONS No prescriptions on file. No family history on file. Social History Tobacco Use - Smoking status: Current Every Day Smoker - Smokeless tobacco: Never Used Substance Use Topics - Alcohol use: Not on file - Drug use: Not on file Review of Systems Constitutional: Negative for fever. Skin: Negative for itching and rash. Objective Blood pressure 110/68, pulse 80, temperature 36.3 ?C (97.3 ?F), temperature source Left Tympanic, resp. rate 16, weight 72 kg (158 lb 12.8 oz). Physical Exam Constitutional: He is oriented to person, place, and time and well-developed, well-nourished, and in no distress. Non-toxic appearance. He does not have a sickly appearance. No distress. HENT: Head: Normocephalic and atraumatic. Pulmonary/Chest: Effort normal. No accessory muscle usage. No respiratory distress. Musculoskeletal: Feet: Neurological: He is alert and oriented to person, place, and time. Skin: He is not diaphoretic. ASSESSMENT/PLAN: 1. Puncture wound of plantar aspect of right foot, initial encounter - ICD9: 892.0, ICD10: S91.331A (primary diagnosis) -use medication as prescribed -will schedule recheck next week with podiatry -to to ER if worsening signs of infection occur. -concerns for early pseudomonal infection - XR FOOT GENERAL 3V AP/LAT/OBL RT - CIPROFLOXACIN 500 MG TABLET - CONSULT TO PODIATRY 2. Need for tetanus booster - ICD9: V03.7, ICD10: Z23 - TDAP VACCINE AGE 7+ IM Prescription instructions reviewed with patient as applicable. Patient advised if symptoms do not improve or if symptoms worsen sooner, to contact the office for further evaluation by their primary care physician. Potential red flag symptoms discussed with the patient. Reviewed appropriate action plan to take if red flag symptoms occur. Patient agreeable to treatment plan. Julissa Yarbrough APRN.PAPER CONTROL CLERK [facility] PROGRESS HNO ID: [id number] Author: Zahira Cm (RtDane Davis Service: ? Author Type: Dog Races Manager Type: Progress Notes Filed: 05/11/2019 12:02 PM Note Text: Radiology Service Progress Note PATIENT NAME: Lu Ortega DATE OF SERVICE: May 11, 2019 TIME: 11:53 AM PATIENT IDENTITY VERIFICATION COMPLETED USING TWO (2) METHODS: Patient confirmed name verbally and Date of . PATIENT GENDER DATA: Male PATIENT RELEVANT IMPLANT DATA REVIEWED: Not Applicable RADIOLOGY DEPARTMENT: General X-ray: Exam(s) Completed: Lower Extremity X-Ray(s): Foot, Right: PERIPHERAL IV DATA: Not applicable SIGNED BY: RT Vera May 11, 2019 11:53 AM [facility] XR FOOT 3V AP/LAT/OBL RTon 0 05-11-2019 XR FOOT 3V AP/LAT/OBL RT * * *Final Report* * * DATE OF EXAM: May 11 2019 12:04PM WOX [id number] - XR FOOT 3V AP/LAT/OBL RT / PROCEDURE REASON: Puncture wound of plantar aspect of right foot, initial encounter * * * * Physician Interpretation * * * * EXAMINATION: XR FOOT 3V AP/LAT/OBL RT HISTORY: pt states stepped on a nail yesterday at work plantar side forefoot disatl 4-5th MT has allot of pain in 4th toe. Doctr thinks may have knicked the bone. area marked by an arrow on lateral view. Puncture wound of plantar aspect of right foot, initial encounter . TECHNIQUE: XR FOOT 3V AP/LAT/OBL RT Laterality: RIGHT Number of different views (projections): 3 M: XB_1 CLINICAL: Laceration. FINDINGS: AP radiographs of the bilateral feet with oblique and lateral radiographs of the right foot demonstrate disruption of the soft tissues overlying the volar forefoot. There is no radiopaque foreign body. The underlying bony structures are within normal limits. IMPRESSION: There is no radiopaque foreign body. Negative fracture. Compliance Officer: MOSES Transcribe Date/Time: May 11 2019 12:07P Dictated by : AIRAM GIORDANO MD This examination was interpreted and the report reviewed and electronically signed by: AIRAM GIORDANO MD on May 11 2019 12:09PM EST [id number] [facility] Encounters Encounter Date Encounter Type Care Provider Facility Start: 06-23-2024 End: 06-23-2024 Emergency department patient visit Murtaza Avelar Facility:[facility] Start: 01-09-2024 End: 01-09-2024 ambulatory [facility] Work Phone: Start: 01-09-2024 End: 01-09-2024 Patient encounter procedure [facility]-Cat Scan, [facility] Work Phone: Start: 01-09-2024 End: 01-09-2024 ambulatory Peña Morris Facility:[facility] Start: 07-28-2022 End: 07-28-2022 [facility] Procedures Date Procedure Procedure Detail Performing Clinician Start: 01-09-2024 CT of face H/O: surgery History of mandibular surger y Payers Date Payer Category Payer Self-pay [id number] 2023 Self-pay [id number] 2023 Unknown [id number] 1985 Unknown [id number] Private Health Insurance [id number] Unknown [id number] Unknown [id number] Social History Date Type Detail Facility Start: 07-19-2021 Tobacco smoking stat [facility] Unknown if ever smoked [facility] Start: 07-11-2019 Cigarettes [facility] Start: 1985 Sex Assigned At Male 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[employer] No July 19 021 3:56pm Chief Complaint and Reason for Visit Chief Complaint SINUSITIS Additional Source Comments (unrecognized sect ion and content) No Status Records FoundNo Status Records FoundNo Status Records Found INFORMATION SOURCE (unrecogn ized section and content) DATE CREATED AUTHOR 05/11/2019 [facility] DATE CREATED AUTHOR AUTHOR'S ORGANIZ ATION 07/28/2022 [facility] DATE CREATED AUTHOR AUTHOR'S ORGANIZ ATION 07/14/2024 [facility] Care Teams (unrecognized sec tion and content) Team Status: Active Member Role Status Dates No Primary Care Physician Family Provider Active SALVADOR Reid Primary Care Provider Active Team Status: Inactive Member Role Status Dates Dr. Peña Morris MD Attending Provider, Referring P lani Active SALVADOR Reid Primary Care Provider Active Goals (unrecognized section and content) Goals may be documented in a n alternate section FOR RECORDS PERTAINING TO PATIENTS WHO ARE OR HAVE BEEN ENROLLED IN A CHEMICAL DEPENDENCY/SUBSTANCEABUSE PROGRAM, SOME INFORMATION MAY BE OMITTED. This clinical summary was aggregated from multiple sources. Caution should be exercised in using it in the provision of clinical care. This summary normalizes information from multiple sources, and as a consequence, information in this document may materially change the coding, format and clinical context of patient data. In addition, data may be omitted in some cases. CLINICAL DECISIONS SHOULD BE BASED ON THE PRIMARY CLINICAL RECORDS. [facility] [employer] [facility]. provides no warranty or guarantee of the accuracy or completeness of information in this document.
--- NOTE | 2025-06-02 20:04 | EDS_ITS ---
HPI History of Present Illness Chief Complaint: Abscess Informant: patient Narrative Narrative: Recurrent pain upper buttocks crease region over last few days. 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 Last couple days trouble positioning. There is been no drainage. States previously he would open up drain with warm showers. No fever or chills. No diabetes history. Prior similar symptoms: Yes PFSH PFSH Medical History Depression Marijuana abuse Wears dentures Back pain Gastric reflux Former smoker Asthma Chronic cough History of edema Nausea Ulcer Home Medications ?Medication ?Instructions ?Recorded ?Last Taken ?Type escitalopram oxalate 10 mg tablet 10 mg PO DAILY 06/23 Unknown History nystatin 100,000 unit/gram topical 1 applic topical BI D #30 grams 06/02/25 Unknown Rx ointment Allergy/AdvReac Type Severity Reaction Status Date / Time No Known Allergies Allergy Verified 06/02/25 18:11 Family History Father No problems noted. Surgical History History of mandibular surgery (~1994) Social History Smoking Status: Current every day smoker tobacco type: e-cigarettes substance use type: does not use caffeine: Yes ROS ROS ED Constitutional Constitutional ED: Denies fever(s) Cardiovascular Cardiovascular: Denies chest pain Respiratory/Chest Respiratory/Chest: Denies cough Gastrointestinal Gastrointestinal: Denies diarrhea or vomiting Musculoskeletal Musculoskeletal: Denies none Integumentary Reports abscess; Denies rash or wounds Neurologic Neurologic: Denies weakness EXAM Physical Exam Const Vital Signs: 06/02/25 18:11 06/02/25 20:53 06/02/25 20:53 Temperature 96.1 F L 98.1 F 98.1 F Temperature Source Temporal Oral Pulse Rate 99 78 78 Respiratory Rate 14 16 16 Blood Pressure 137/74 H 110/75 110/75 Blood Pressure Mean 95 86 86 Pulse Ox 98 98 98 Oxygen Delivery Method Room Air Room Air Positive well nourished and well developed General Appearance ED: well developed and NAD HEENT Reports moist mucous membranes normocephalic and atraumatic Eyes General Eye ED: Yes normal appearance of both eyes Neck full ROM Chest Wall Chest: Negative for tenderness Resp normal respiratory effort and normal air movement Effort and Inspection: symmetric chest movement; Negative for respiratory distress Cardio regular rate, regular rhythm and no murmurs Peripheral Pulses: pulses 2+ throughout GI normal to inspection, nondistended, normoactive bowel sounds and non-tender Palpation: Negative for guarding or rebound tenderness present Extremity normal to inspection General Extremety ED: Negative for edema or tenderness General Extremity: Negative for edema Neuro oriented x3 and no sensory deficits noted Sensorium / Orientation: awake and alert Skin Skin Narrative: Left upper buttocks crease region there is induration and slight fluctuance 3 x 2 cm. No drainage slight tenderness to palpation. No pain in the pilonidal area. Right side buttocks crease area more concerning for tinea with scaly lesions. No streaking noted. MDM MDM MDM Narrative Medical decision making narrative: Interventions / MDM: Differential diagnosis: Abscess, tinea Diagnosis considered but do not suspect: No pilonidal abscess My EKG interpretation: N/A Imaging independently reviewed and interpreted by myself: N/A External documents reviewed: N/A Test considered but not ordered:N/A ED course: Patient appears abscess due to follicular inflammation buttocks area. No active drainage. Discussed treatment with incision and drainage. He agrees. This will be prepared. Procedure note: Verbal consent. Normal sterile conditions. 4 cc 1% lidocaine with epinephrine used for local analgesia after alcohol prep. Shur-Clens used to cleanse the wound area. 11 blade used for cruciate incision there is exudative drainage loculations broken with hemostat. Flushed with normal saline. Dressing placed by nursing. Patient tolerated the procedure well. Incision and drainage definitive treatment for abscess. Discussed wound care with the patient. Provided nystatin ointment for his fungal infection in the right gluteal area. He does have a PCP for follow-up. All questions were answered. Re-evaluation: stable Disposition discussed with patient/family/significant other: Patient Case discussed with consulting clinician: N/A This note was generated with [employer] software. It may contain incorrect words, spelling, and punctuation that were not noted in checking the note before signing. Discharge Plan Triage Chief Complaint: Abscess ED Provider: Isaac Wayne Dx/Rx/DC Orders Clinical Impression: Abscess, gluteal, left, Tinea Instructions: ED Abscess Incision And Drainage, ED Ringworm of the Skin Prescriptions: New nystatin 100,000 unit/gram ointment 1 applic topical BID Qty: 30 0RF Rx Instructions: Affected area No Action escitalopram oxalate 10 mg tablet 10 mg PO DAILY Primary Care Provider: Erika Hernandez Referrals: Erika Hernandez, CONTRACT ADMINISTRATIVE ASSISTANT-C [Primary Care Provider] - 1 Week Activity Restrictions/Additional Instructions: Abscess with incision and drainage. You had noted fungal infection right sided. Use fungal cream as provided. May take up to 2 to 3 weeks to resolve. Expect continued drainage from the abscess. Continue daily dressings. Print Language: Bermudian Disposition Disposition: Home, Self Care Discharge Date/Time: 06/02/25 20:55
[2025-06-02 20:53] VITALS: BP 110/75; PULSE 78; RESP 16; TEMP 36.7; O2SAT 98
== END 2025-06-02 20:55 | disposition home or self-care (01) ==
PROVIDERS: Emergency Provider Emergency Medicine; PCP Nurse Practitioner Family; Visit Provider Emergency Medicine
DX: L02.31 Cutaneous abscess of buttock (principal); B35.9 Dermatophytosis, unspecified; F32.A Depression, unspecified; Z79.899 Other long term (current) drug therapy; F17.290 Nicotine dependence, other tobacco product, uncomplicated
CPT/HCPCS: 10060; 99282